=== PATIENT | male | born 1985 | race Caucasian/White ===

== ENCOUNTER 2024-11-13 11:42 | Emergency (ER) | payer SELFPAY ==
[~2024-11-13] VITALS: Ht 165.1 cm; Wt 69.0 kg
[2024-11-13 11:51] VITALS: O2SAT 98
[2024-11-13] MEDS ORDERED: HYDROMORPHONE HCL/PF 2MG/ML INJ IV ONE (12:00)
[2024-11-13] MEDS: HYDROMORPHONE HCL/PF 1MG/ML INJ IV NR (12:23)
[2024-11-13] MEDS: ONDANSETRON HCL 4MG/2ML INJ IV ONE (12:23)
[2024-11-13] MEDS: SODIUM CHLORIDE 0.9% 2,000 ML IV ONE (12:23)
[2024-11-13] MEDS: MORPHINE SULFATE 4 MG/ML INJ (FOR IV/IM USE) IV ONE (12:23)
[2024-11-13 12:35] LABS: BASOPHILS % 0.5 % (0.0-2.0); EOSINOPHILS % 1.3 % (0.0-5.0); HEMATOCRIT. 37.7 % (42.0-52.0); HEMOGLOBIN. 12.4 g/dL (14.0-18.0); LYMPHOCYTES % 31.0 % (20.0-50.0); MEAN PLATELET VOLUME 10.1 fl (7.4-10.4); MONOCYTES % 10.1 % (2.0-8.0); NEUTROPHILS % 57.1 % (40.0-76.0); PLATELET 105 x1000/uL (130-400); RED BLOOD CELL COUNT 3.81 mill/uL (4.7-6.1); RED CELL DISTRIBUTION WIDTH 15.1 % (11.6-14.6)
[2024-11-13] MEDS: TETANUS, DIPHTHERIA, PERTUSSIS VAC/PF 0.5ML (>10YR OLD) IM ONE (12:40)
[2024-11-13 12:44] LABS: INR 0.9
[2024-11-13] MEDS ORDERED: KCL 20MEQ/100ML PREMIX 100 ML IV NR (12:45)
[2024-11-13 12:47] LABS: CREATININE 0.7 mg/dL (0.6-1.3)
[2024-11-13 12:48] LABS: UREA NITROGEN BLOOD < 5 mg/dL (9-23)
[2024-11-13 12:49] LABS: ASPARTATE AMINOTRANSFERASE 147 IU/L (<34)
[2024-11-13 12:50] LABS: BILIRUBIN DIRECT 0.1 mg/dL (<=3.0); BILIRUBIN TOTAL 0.3 mg/dL (0.1-1.0); PROTEIN TOTAL 8.5 g/dL (6.0-8.3)
[2024-11-13 12:59] LABS: BG BASE EXCESS -4.3 mmol/L (-2.0-3.0); BG CARBOXYHEMOGLOBIN 0.7 % (0.5-1.5); BG DEOXYHEMOGLOBIN 0.1 % (0.0-5.0); BG FLOW(L/min) 15.00 L/min; BG FRACTION INSPIRED OXYGEN 100; BG HCO3 ACT 21.9 mmol/L (21.0-28.0); BG METHEMOGLOBIN 0.5 % (0.5-1.5); BG OXYGEN SATURATION 99.9 % (94.0-98.0); BG OXYHEMOGLOBIN 98.7 % (94.0-98.0); BG PCO2 44.4 mmHg (35.0-48.0); BG PH 7.311 (7.350-7.450); BG PO2 526.5 mmHg (83.0-108.0); BG SAMPLE SITE RIGHT RADIAL; BG TOTAL HEMOGLOBIN 12.4 g/dL (13.5-17.5); BG VENT MODE MASK - NRB
[2024-11-13 13:10] VITALS: BP 138/89; PULSE 97; RESP 10; TEMP 36.9; O2SAT 99
[2024-11-13 13:26] LABS: TROPONIN I HIGH SENSITIVITY 13 ng/L (3.0-53)
== END 2024-11-13 13:27 | disposition short-term general hospital (02) ==
LOC: ER 11:42
DX: T22.222A Burn of second degree of left elbow, initial encounter (principal); T21.24XA Burn of second degree of lower back, initial encounter; T31.0 Burns involving less than 10% of body surface; I10 Essential (primary) hypertension; X08.8XXA Exposure to other specified smoke, fire and flames, initial encounter; Y93.89 Activity, other specified; Y92.89 Other specified places as the place of occurrence of the external cause; Y99.8 Other external cause status
CPT/HCPCS: 80076; 80048; 83690; 85025; 85610; 85730; 86850; 86900; 86901; 84484; 36415; 71045; 73110; 73130; 90715; 82805; 82375; 93005; 90471; 96361; 96374; 96375; 99291; 36600; J2405; J1171; J2270; J7030; Z7610 ×3